=== PATIENT | female | born 1945 | race Caucasian/White ===

== ENCOUNTER → 2017-07-28 | Outpatient (CLI) | payer OTHER ==
--- NOTE | 2017-07-28 15:24 | MAMMOGRAPHY REPORT ---
BILATERAL DIGITAL DIAGNOSTIC MAMMOGRAM TOMOSYNTHESIS WITH CAD AND TARGETED RIGHT ULTRASOUND: 8 CLINICAL HISTORY: 71-year-old woman with a personal history of left breast cancer status post breast conservation treatment presents for annual bilateral mammograms. TECHNIQUE: Bilateral breast tomosynthesis in addition to standard 2D mammography was performed. Spo t magnification left CC and ML; spot compression tomosynthesis right CC views were obtained. Current study was also evaluated with a Computer Aided Detection (CAD) system. COMPARISON: Comparison is made to exams dated: 01/10/2016 ultrasound, 01/10/2016 mammogram - [facility], 07/12/2015 mammogram, 07/09/2015 mammogram, 03/30/2014 mammogram, and 03/29/2013 m ammogram. BREAST COMPOSITION: There are scattered areas of fibroglandular density in both breasts. FINDINGS: There is expected architectural distortion in the 12:00 middle and posterior left breast, d enoting the site of prior lumpectomy. A linear scar marker overlies the 12:00 left breast. There ar e coarse, round and punctate microcalcifications near the surgical site, for which additional spot ma gnification views were obtained. On the spot magnification views, there are scattered coarse, round and punctate microcalcifications, without evidence of a new suspicious grouping or cluster of calcifi cations. When comparing to prior mammograms the calcifications have been present dating back to [place], therefore considered benign. There is nodularity in the right lateral breast near the fatand short interface and along the fuse spooler ior nipple line on the cc view for which additional spot compression tomosynthesis views were obtaine d. With the additional spot compression tomosynthesis views, the nodularity does not persist and the re is no definite evidence of a persistent mass or architectural distortion. This suggests the nodul arity represented normal overlapping tissue, likely due to nipple out of profile however further eval uation with ultrasound was performed. Targeted ultrasound was performed in the lateral right breast and also in the 12:00, retroareolar and 6:00 axes. Incidental note is made of a benign anechoic simple cyst in the 11:00 right breast, 4 cm from the nipple, measuring 4.1 x 1.7 x 2.9 mm, and benign duct ectasia in the retroareolar right kellie ast. No other suspicious solid or cystic mass is identified on targeted ultrasound of the right [address]. IMPRESSION: ACR BI-RADS CATEGORY 2: BENIGN, TARGETED ULTRASOUND ACR BI-RADS CATEGORY 2: BENIGN 1. Nodularity in the right breast along the posterior nipple line and in the lateral breast on the c c view effaces with additional spot compression tomosynthesis views, and no suspicious sonographic co rrelate was identified. This nodularity was most likely artifactual given nipple out of profile. No further close follow-up is needed at this time. 2. Stable postsurgical changes and benign-appearing calcifications in the left breast. No definite mammographic evidence of malignancy bilaterally. 3. Recommend annual bilateral mammography in one year, and would recommend remaining a diagnostic pa tient in case any additional mammographic views and/or ultrasound are needed, given the personal hist ory of left breast cancer. Approximately 10% of breast cancers are not detected with mammography. A negative mammographic report should not delay biopsy if a clinically suggestive mass is present. Carrie Monrdagon M.D. ay/:07/28/2017 14:01:39 Recycling Director: Harriet QUINTANILLA(Tatiana)([place]), letter sent: Normal 1/2 BI-RADS Code: ACR BI-RADS Category 2: Benign Ultrasound BI-RADS: ACR BI-RADS Category 2: Benign
== END ==
LOC: C.MAMM 13:09
PROVIDERS: ATTEND Internal Medicine Hematology & Oncology
DX: Z12.31 Encounter for screening mammogram for malignant neoplasm of breast (principal); Z85.3 Personal history of malignant neoplasm of breast